=== PATIENT | male | born 1980 | race Hispanic/Latino ===

== ENCOUNTER 2019-03-17 14:56 | Outpatient (CLI) | payer OTHER ==
--- NOTE | 2019-03-17 17:05 | RAD ---
Radiograph right wrist 3 views: DATE: 03/17/2019 HISTORY: 38-year-old male status post traumatic injury COMPARISON: None FINDINGS: Mildly comminuted oblique-transverse fracture of distal radial metaphysis, with approximately 25% bon e width posterior displacement of major distal fragment and slight overlap suggesting impaction, and no major angulation. No obvious step-off of radiocarpal joint surface, although a component of th e fracture has a vertical component that does involve the ulnar side of the distal radiocarpal articular surface. Questionable nondisplaced linear lucency across the waist of the scaphoid, encroaching upon distal po le. Uncertain whether this is part of normal the trabecular markings or nondisplaced fracture. Mildly displaced fracture of mid and distal portions of ulnar styloid process. IMPRESSION: 1. Acute, traumatic, mildly displaced Colles' fracture of distal radial metaphysis and probably also epiphysis. 2. Acute, traumatic, minimally displaced fracture of ulnar styloid process. 3. Uncertain whether or not there is a nondisplaced scaphoid fracture. Follow-up is recommended.
--- NOTE | 2019-03-17 17:07 | RAD ---
Radiograph right forearm 2 views: 03/17/2019 HISTORY: 38-year-old male status post acute traumatic injury to forearm. COMPARISON: None FINDINGS: Mildly comminuted, mildly displaced fracture of distal radial metaphysis and epiphysis. Fracture of mid ulnar styloid process is more displaced on this radiograph of the forearm than it was during the wrist radiograph. The rest of the radius and rest of the ulna are intact. IMPRESSION: 1. Acute, traumatic, displaced Colles' fracture of distal radial metaphysis and epiphysis. 2. Acute, traumatic, displaced fracture of ulnar styloid process.
== END 2019-03-17 14:57 | disposition home or self-care (01) ==
LOC: BICRAD 14:56
PROVIDERS: ATTEND Family Medicine
DX: S59.911A Unspecified injury of right forearm, initial encounter (principal); S52.531A Colles' fracture of right radius, initial encounter for closed fracture; S52.611A Displaced fracture of right ulna styloid process, initial encounter for closed fracture; S52.502A Unspecified fracture of the lower end of left radius, initial encounter for closed fracture

== ENCOUNTER 2020-11-22 16:57 | Emergency (ER) | payer SELFPAY ==
[2020-11-22] MEDS ORDERED: Acetaminophen 500 MG TAB ONE (19:51)
[2020-11-22] MEDS ORDERED: Ibuprofen 800 MG TAB ONE (21:41)
[2020-11-23 15:30] LABS: SARS-CoV-2 PCR by NAA DETECTED (NotDetected)
== END 2020-11-22 23:05 | disposition home or self-care (01) ==
LOC: ERS 16:57
DX: U07.1 COVID-19 (principal)
CPT/HCPCS: 99283; U0003; U0005

== ENCOUNTER 2020-11-29 09:13 | Inpatient (IN) | payer SELFPAY ==
[2020-11-29 09:52] LABS: #Lymphocytes 1.3 thou/uL (1.20-3.40); #Monocytes 0.3 thou/uL (0.11-0.59); #Neutrophils 7.6 thou/uL (1.40-6.50); %Basophils 0.2 % (0.0-1.0); %Eosinophils 0.1 % (0.0-10.0); %Lymphocytes 14.3 % (21.0-51.0); %Monocytes 3.2 % (0.0-10.0); %Neutrophils 82.2 % (42.0-75.0); Hemoglobin 13.4 g/dL (14.0-18.0); Mean Corpuscular HGB CONC 35.7 g/dL (32.0-36.0); Mean Corpuscular Hemoglobin 30.7 pg (27.0-31.0); Mean Corpuscular Volume 85.9 fL (78.0-98.0); Platelet Count 308 thou/uL (130-400); RBC Distribution Width 12.9 % (11.5-14.5); Red Blood Cell (RBC) Count 4.36 mill/uL (4.70-6.10); White Blood Cell (WBC) Count 9.3 thou/uL (4.8-10.8)
[2020-11-29] MEDS ORDERED: cefTRIAXone\\ROCEPHIN 2 GM VIAL ONE (09:55)
[2020-11-29] MEDS ORDERED: Dexamethasone 10 MG/ML VIAL ONE (09:55)
[2020-11-29] MEDS ORDERED: Azithromycin 500 MG VIAL ONE (09:55)
[2020-11-29] MEDS ORDERED: Aspirin Chewable 81 MG TAB ONE (09:55)
[2020-11-29 09:58] LABS: ALT (SGPT) 47 U/L (8-55); AST (SGOT) 92 U/L (5-34); Albumin 3.7 g/dL (3.5-5.0); Alkaline Phosphatase 89 U/L (40-110); Anion Gap 13 mmol/L (10-20); BUN (Urea Nitrogen) 11 mg/dL (8.9-20.6); Bilirubin, Total 0.9 mg/dL (0.2-1.2); CK (CPK) 2085 U/L (30-200); Calc. Creatinine Clearance 0 mL/min (70-130); Calcium 8.3 mg/dL (7.8-10.44); Carbon Dioxide 25 mmol/L (22-29); Chloride 90 mmol/L (98-107); Globulin 4.4 g/dL (2.4-3.5); Glucose 153 mg/dL (70-105); Protein, Total 8.1 g/dL (6.0-8.3); Sodium 125 mmol/L (136-145)
[2020-11-29 10:03] LABS: Potassium 2.9 mmol/L (3.5-5.1)
[2020-11-29] MEDS ORDERED: Potassium Chloride 20 MEQ TAB ONE (10:30)
[2020-11-29] MEDS ORDERED: Enoxaparin Sodium 80 MG/0.8 ML SYRINGE ONE (10:30)
[2020-11-29] MEDS ORDERED: Iopamidol-370 76% 500 ML 1 ML ONE (10:43)
[2020-11-29 13:02] LABS: SARS-CoV-2 NAA Rapid Test DETECTED (NotDetected)
[2020-11-29] MEDS ORDERED: Rocuronium Bromide 10 MG/ML (10ML VIAL) ONE (15:43)
[2020-11-29] MEDS ORDERED: Electrolyte Replacement Protocol 1 EACH FS ONE (16:10)
[2020-11-29] MEDS ORDERED: Ondansetron PF 4 MG/2 ML Vial IVP PRN (16:10)
[2020-11-29] MEDS ORDERED: Ventilator Sedation Protocol 1 EACH FS ONE ×2 (16:10→18:06)
[2020-11-29] MEDS ORDERED: Albuterol Sulfate 2.5 mg/3 ml Neb NEB PRN (16:10)
[2020-11-29] MEDS ORDERED: hydrALAZINE 20 MG/ML VIAL SLOW IVP PRN (16:10)
[2020-11-29] MEDS ORDERED: Ondansetron ODT 4 MG TAB PO PRN (16:10)
[2020-11-29] MEDS ORDERED: Acetaminophen 500 MG TAB PO PRN (16:10)
[2020-11-29] MEDS ORDERED: PROPOFOL 0 ML ONE (16:19)
[2020-11-29] MEDS ORDERED: Propofol 1,000 MG/100 ML VIAL IV ONE ×2 (16:20→21:34)
[2020-11-29 16:30] LABS: Actual Bicarbonate (HCO3a) 20.4 mEq/L (22-28); Analyzer IN Cardio ER; Base Excess (BEa) -5.7 mEq/L (-2.0 to +3.0); CO2 Tension 42.2 mmHg (35.0-45.0); Calcium, Ionized (arterial) 1.08 mmol/L (1.12-1.30); Carboxyhemoglobin (COHb) 0.3 gm% (0.0-3.0); Hemoglobin (Hb) 13.9 g/dL (14.0-18.0); O2 Tension (PaO2), arterial 62.3 mmHg (80.0-100.0); Potassium - ABG Lab 3.96 mmol/L (3.70-5.30)
[2020-11-29 16:41] LABS: Puncture Site LRA
[2020-11-29] MEDS ORDERED: DISCONTINUE PREVIOUS NARCOTIC PAIN MEDICATIONS AND BENZODIAZEPINES FS SCH (17:00)
[2020-11-29] MEDS ORDERED: Fentanyl BOLUS 250 ML IVPB PRN (17:00)
[2020-11-29] MEDS ORDERED: Electrolyte Replacement Protocol FS PRN (17:00)
[2020-11-29] MEDS ORDERED: Propofol BOLUS 1,000 MG/100 ML VIAL IV PRN (17:00)
[2020-11-29] MEDS ORDERED: Morphine 2 MG/ML VIAL SLOW IVP PRN (17:00)
[2020-11-29] MEDS: Sodium Chloride 0.9% 1,000 ML IV SCH ×2 (17:02→22:15)
[2020-11-29] MEDS: Propofol 1,000 MG/100 ML VIAL IV PRN ×2 (17:08→22:24)
[2020-11-29] MEDS ORDERED: Fentanyl 100 MCG/2 ML VIAL ONE (17:46)
[2020-11-29] MEDS: VANCOMYCIN 1.25 GM/250 ML BAG 1.25 GM in Premix Bag 1 BAG IVPB SCH (18:24)
[2020-11-29] MEDS ORDERED: Pantoprazole 40 MG VIAL IVP SCH (18:45)
[2020-11-29] MEDS: methylPREDNISolone Sod Succ/PF 80 MG in Sodium Chloride 0.9% 250 ML 250 ML IVPB SCH (20:18)
[2020-11-29] MEDS ORDERED: Dexamethasone 10 MG/ML VIAL SLOW IVP SCH (21:00)
[2020-11-29] MEDS ORDERED: Enoxaparin Sodium 40 MG/0.4 ML SYRINGE ONE (22:32)
[2020-11-29] MEDS ORDERED: Cefepime 2 GM VIAL ONE (22:32)
[2020-11-29] MEDS ORDERED: Pantoprazole 40 MG VIAL ONE (22:32)
[2020-11-29] MEDS ORDERED: Cholecalciferol 1,000 UNITS (25 MCG) TAB ONE (22:42)
[2020-11-29] MEDS: Enoxaparin Sodium 40 MG/0.4 ML SYRINGE SC SCH (22:42)
[2020-11-29] MEDS: Cefepime 2 GM in Sodium Chloride 0.9% 100 ML IVPB SCH (22:43)
[2020-11-29] MEDS: Cholecalciferol 1,000 UNITS (25 MCG) TAB PER TUBE SCH (22:44)
[2020-11-30] MEDS ORDERED: Vecuronium 10 MG VIAL ONE ×8 (00:58→16:34)
[2020-11-30] MEDS: Vecuronium 10 MG VIAL IV PRN ×9 (01:30→22:10)
[2020-11-30] MEDS ORDERED: Propofol 1,000 MG/100 ML VIAL IV ONE ×4 (03:12→14:47)
[2020-11-30] MEDS: Propofol 1,000 MG/100 ML VIAL IV PRN ×5 (03:17→18:20)
[2020-11-30 05:00] LABS: ALT (SGPT) 40 U/L (8-55); AST (SGOT) 62 U/L (5-34); Albumin 2.8 g/dL (3.5-5.0); Alkaline Phosphatase 72 U/L (40-110); Anion Gap 13 mmol/L (10-20); BUN (Urea Nitrogen) 9 mg/dL (8.9-20.6); Bilirubin, Total 0.5 mg/dL (0.2-1.2); CK (CPK) 770 U/L (30-200); Calc. Creatinine Clearance 0 mL/min (70-130); Calcium 7.9 mg/dL (7.8-10.44); Carbon Dioxide 23 mmol/L (22-29); Chloride 107 mmol/L (98-107); Globulin 3.9 g/dL (2.4-3.5); Glucose 175 mg/dL (70-105); Protein, Total 6.7 g/dL (6.0-8.3); Sodium 139 mmol/L (136-145)
[2020-11-30 05:01] LABS: #Lymphocytes 1.1 thou/uL (1.20-3.40); #Monocytes 0.4 thou/uL (0.11-0.59); #Neutrophils 11.8 thou/uL (1.40-6.50); %Basophils 0.1 % (0.0-1.0); %Eosinophils 0.1 % (0.0-10.0); %Lymphocytes 8.1 % (21.0-51.0); %Monocytes 2.6 % (0.0-10.0); %Neutrophils 89.2 % (42.0-75.0); Hemoglobin 12.8 g/dL (14.0-18.0); Mean Corpuscular HGB CONC 32.8 g/dL (32.0-36.0); Mean Corpuscular Hemoglobin 29.1 pg (27.0-31.0); Mean Corpuscular Volume 88.9 fL (78.0-98.0); Platelet Count 327 thou/uL (130-400); RBC Distribution Width 13.3 % (11.5-14.5); Red Blood Cell (RBC) Count 4.38 mill/uL (4.70-6.10); White Blood Cell (WBC) Count 13.2 thou/uL (4.8-10.8)
[2020-11-30 08:02] LABS: Base Excess (BEa) -4.5 mEq/L (-2.0 to +3.0); CO2 Tension 40.2 mmHg (35.0-45.0); Calcium, Ionized (arterial) 1.11 mmol/L (1.12-1.30); Carboxyhemoglobin (COHb) 0.2 gm% (0.0-3.0); Hemoglobin (Hb) 12.8 g/dL (14.0-18.0); O2 Tension (PaO2), arterial 78.3 mmHg (80.0-100.0); Potassium - ABG Lab 3.69 mmol/L (3.70-5.30); pH, Arterial 7.34 (7.35-7.45)
[2020-11-30] MEDS: VANCOMYCIN 1.25 GM/250 ML BAG 1.25 GM in Premix Bag 1 BAG IVPB SCH ×2 (08:13→16:43)
[2020-11-30 08:19] LABS: Peep/CPAP 12.5 cmH2O; Puncture Site LRA
[2020-11-30] MEDS ORDERED: Cefepime 2 GM VIAL ONE (08:41)
[2020-11-30] MEDS ORDERED: Enoxaparin Sodium 40 MG/0.4 ML SYRINGE ONE (08:41)
[2020-11-30] MEDS ORDERED: Zinc Sulfate 220 MG CAP ONE (08:43)
[2020-11-30] MEDS ORDERED: Ascorbic Acid 500 mg Chewable Tablet ONE (08:43)
[2020-11-30] MEDS: Ascorbic Acid 500 mg Chewable Tablet PER TUBE SCH (09:01)
[2020-11-30] MEDS: Cefepime 2 GM in Sodium Chloride 0.9% 100 ML IVPB SCH ×2 (09:01→22:13)
[2020-11-30] MEDS: Enoxaparin Sodium 40 MG/0.4 ML SYRINGE SC SCH (09:02)
[2020-11-30] MEDS: Zinc Sulfate 220 MG CAP PER TUBE SCH (09:02)
[2020-11-30] MEDS: Sodium Chloride 0.9% 1,000 ML IV SCH ×2 (09:05→11:54)
[2020-11-30] MEDS ORDERED: Acetaminophen 325 MG TAB ONE (10:29)
[2020-11-30] MEDS: methylPREDNISolone Sod Succ/PF 80 MG in Sodium Chloride 0.9% 250 ML 250 ML IVPB SCH (18:21)
[2020-11-30] MEDS ORDERED: Sterile Water 10 ML ONE (21:38)
[2020-11-30] MEDS ORDERED: Sodium Bicarb 50 MEQ/50 ML Abboject 8.4% SYRINGE ONE (21:38)
[2020-11-30] MEDS: Lorazepam 2 MG/ML VIAL SLOW IVP PRN ×2 (21:40→22:10)
[2020-11-30] MEDS: Fentanyl CADD 100 ML IV SCH (21:52)
[2020-11-30] MEDS: Pantoprazole 40 MG VIAL IVP SCH (22:00)
[2020-11-30] MEDS: Enoxaparin Sodium 60 MG/0.6 ML SYRINGE SC SCH (22:00)
[2020-11-30] MEDS: Cholecalciferol 1,000 UNITS (25 MCG) TAB PER TUBE SCH (22:18)
[2020-12-01] MEDS: Lorazepam 2 MG/ML VIAL SLOW IVP PRN ×9 (01:06→22:10)
[2020-12-01] MEDS: Propofol 500 MG/50 ML VIAL IV PRN ×5 (01:07→11:09)
[2020-12-01] MEDS: Sodium Chloride 0.9% 1,000 ML IV SCH ×2 (02:30→07:42)
[2020-12-01 04:10] LABS: ALT (SGPT) 35 U/L (8-55); AST (SGOT) 50 U/L (5-34); Albumin 2.5 g/dL (3.5-5.0); Alkaline Phosphatase 86 U/L (40-110); Anion Gap 11 mmol/L (10-20); BUN (Urea Nitrogen) 10 mg/dL (8.9-20.6); Bilirubin, Total 0.6 mg/dL (0.2-1.2); Calc. Creatinine Clearance 164 mL/min (70-130); Calcium 7.5 mg/dL (7.8-10.44); Carbon Dioxide 25 mmol/L (22-29); Chloride 110 mmol/L (98-107); Glucose 165 mg/dL (70-105); Potassium 4.1 mmol/L (3.5-5.1); Protein, Total 5.5 g/dL (6.0-8.3); Sodium 142 mmol/L (136-145)
[2020-12-01 04:30] LABS: #Lymphocytes 0.6 thou/uL (1.20-3.40); #Monocytes 0.2 thou/uL (0.11-0.59); #Neutrophils 7.8 thou/uL (1.40-6.50); %Basophils 0.2 % (0.0-1.0); %Eosinophils 0.2 % (0.0-10.0); %Lymphocytes 6.6 % (21.0-51.0); %Monocytes 2.4 % (0.0-10.0); %Neutrophils 90.7 % (42.0-75.0); Hemoglobin 11.6 g/dL (14.0-18.0); Mean Corpuscular HGB CONC 34.8 g/dL (32.0-36.0); Mean Corpuscular Hemoglobin 30.9 pg (27.0-31.0); Mean Corpuscular Volume 88.8 fL (78.0-98.0); Mean Platelet Volume 7.8 fL (7.4-10.4); Platelet Count 356 thou/uL (130-400); RBC Distribution Width 13.5 % (11.5-14.5); Red Blood Cell (RBC) Count 3.76 mill/uL (4.70-6.10); White Blood Cell (WBC) Count 8.6 thou/uL (4.8-10.8)
[2020-12-01] MEDS: VANCOMYCIN 1.25 GM/250 ML BAG 1.25 GM in Premix Bag 1 BAG IVPB SCH ×2 (04:58→16:38)
[2020-12-01] MEDS: Fentanyl CADD 100 ML IV SCH ×2 (05:18→14:57)
[2020-12-01] MEDS: Vecuronium 10 MG VIAL IV PRN ×9 (05:30→22:27)
[2020-12-01] MEDS: methylPREDNISolone Sod Succ/PF 80 MG in Sodium Chloride 0.9% 250 ML 250 ML IVPB SCH (07:42)
[2020-12-01] MEDS ORDERED: PROPOFOL 20 ML ONE (07:43)
[2020-12-01] MEDS: Cefepime 2 GM in Sodium Chloride 0.9% 100 ML IVPB SCH ×2 (08:53→20:29)
[2020-12-01] MEDS: Enoxaparin Sodium 60 MG/0.6 ML SYRINGE SC SCH ×2 (08:53→20:28)
[2020-12-01] MEDS: Ascorbic Acid 500 mg Chewable Tablet PER TUBE SCH (08:53)
[2020-12-01] MEDS: Zinc Sulfate 220 MG CAP PER TUBE SCH (08:53)
[2020-12-01 09:55] LABS: Actual Bicarbonate (HCO3a) 26.4 mEq/L (22-28); Base Excess (BEa) 1.5 mEq/L (-2.0 to +3.0); CO2 Tension 42.6 mmHg (35.0-45.0); Calcium, Ionized (arterial) 1.06 mmol/L (1.12-1.30); Carboxyhemoglobin (COHb) 0.1 gm% (0.0-3.0); Hemoglobin (Hb) 11.6 g/dL (14.0-18.0); Potassium - ABG Lab 3.74 mmol/L (3.70-5.30); pH, Arterial 7.41 (7.35-7.45)
[2020-12-01 09:58] LABS: O2 Tension (PaO2), arterial 44.8 mmHg (80.0-100.0); Puncture Site RRA
[2020-12-01 10:10] LABS: ALT (SGPT) 33 U/L (8-55); AST (SGOT) 48 U/L (5-34); Albumin 2.5 g/dL (3.5-5.0); Alkaline Phosphatase 91 U/L (40-110); Anion Gap 12 mmol/L (10-20); BUN (Urea Nitrogen) 11 mg/dL (8.9-20.6); Bilirubin, Total 0.5 mg/dL (0.2-1.2); Calc. Creatinine Clearance 0 mL/min (70-130); Calcium 7.4 mg/dL (7.8-10.44); Carbon Dioxide 24 mmol/L (22-29); Chloride 110 mmol/L (98-107); Globulin 2.9 g/dL (2.4-3.5); Glucose 165 mg/dL (70-105); Magnesium 2.2 mg/dL (1.6-2.6); Phosphorus 2.7 mg/dL (2.3-4.7); Protein, Total 5.4 g/dL (6.0-8.3); Sodium 142 mmol/L (136-145)
[2020-12-01 10:11] LABS: Band 34 % (5-11); Lymphocytes 4 % (21-51); MDiff Complete? YES; Mean Corpuscular HGB CONC 36.2 g/dL (32.0-36.0); Mean Corpuscular Hemoglobin 32.1 pg (27.0-31.0); Mean Corpuscular Volume 88.9 fL (78.0-98.0); Mean Platelet Volume 7.5 fL (7.4-10.4); Myelocyte 1 % (0-0); Neutrophil 58 % (42-75); Nucleated RBC 1 % (0); Platelet Count 364 thou/uL (130-400); RBC Distribution Width 13.5 % (11.5-14.5); Reactive Lymphocytes 1 % (0-10); Red Blood Cell (RBC) Count 3.73 mill/uL (4.70-6.10); White Blood Cell (WBC) Count 8.4 thou/uL (4.8-10.8)
[2020-12-01] MEDS: Propofol 1,000 MG/100 ML VIAL IV PRN ×2 (16:01→22:11)
[2020-12-01 18:15] LABS: Bacteria/HPF None Seen HPF (None Seen); Bilirubin Negative (Negative); Blood, Urine 2+ (Negative); Clarity Clear (Clear); Glucose, Urine (Dipstick) Normal (Negative); Ketone, Urine Negative (Negative); Leukocyte Negative Leu/uL (Negative); Nitrite Negative (Negative); Protein, Urine (Dipstick) 50 mg/dL (Neg-Trace); RBC/HPF 0-3 HPF (0-3); Specific Gravity, Urine 1.026 (1.002-1.036); Squamous Epithelial 0-3 HPF (0-3); Urobilinogen Normal mg/dL (Less than 2)
[2020-12-01 18:16] LABS: Urine Culture Reflex Yes Yes
[2020-12-01] MEDS ORDERED: Sterile Water 10 ML ONE ×2 (20:06→22:26)
[2020-12-01] MEDS: Cholecalciferol 1,000 UNITS (25 MCG) TAB PER TUBE SCH (20:28)
[2020-12-01] MEDS: Pantoprazole 40 MG VIAL IVP SCH (20:29)
[2020-12-02] MEDS ORDERED: Fentanyl CADD 100 ML ONE (01:03)
[2020-12-02] MEDS: Lorazepam 2 MG/ML VIAL SLOW IVP PRN ×2 (01:12→15:02)
[2020-12-02] MEDS: Vecuronium 10 MG VIAL IV PRN ×12 (01:13→22:38)
[2020-12-02] MEDS: Fentanyl CADD 100 ML IV SCH ×3 (01:13→17:50)
[2020-12-02] MEDS: VANCOMYCIN 1.25 GM/250 ML BAG 1.25 GM in Premix Bag 1 BAG IVPB SCH ×2 (05:08→16:28)
[2020-12-02] MEDS: Propofol 1,000 MG/100 ML VIAL IV PRN ×5 (05:08→23:37)
[2020-12-02] MEDS ORDERED: Sterile Water 10 ML ONE (06:32)
[2020-12-02 07:20] LABS: ALT (SGPT) 37 U/L (8-55); AST (SGOT) 66 U/L (5-34); Albumin 2.5 g/dL (3.5-5.0); Alkaline Phosphatase 109 U/L (40-110); Anion Gap 11 mmol/L (10-20); BUN (Urea Nitrogen) 14 mg/dL (8.9-20.6); Bilirubin, Total 0.6 mg/dL (0.2-1.2); CRP (Inflammatory) 5.86 mg/dL (= or < 0.5); Calc. Creatinine Clearance 0 mL/min (70-130); Calcium 7.5 mg/dL (7.8-10.44); Carbon Dioxide 25 mmol/L (22-29); Chloride 108 mmol/L (98-107); Glucose 178 mg/dL (70-105); Magnesium 2.3 mg/dL (1.6-2.6); Potassium 4.2 mmol/L (3.5-5.1); Protein, Total 5.5 g/dL (6.0-8.3); Sodium 140 mmol/L (136-145)
[2020-12-02] MEDS: Ascorbic Acid 500 mg Chewable Tablet PER TUBE SCH (07:37)
[2020-12-02] MEDS: Enoxaparin Sodium 60 MG/0.6 ML SYRINGE SC SCH ×2 (07:37→20:18)
[2020-12-02] MEDS: Zinc Sulfate 220 MG CAP PER TUBE SCH (07:37)
[2020-12-02 07:41] LABS: Phosphorus 3.2 mg/dL (2.3-4.7)
[2020-12-02 07:46] LABS: Band 13 % (5-11); Hemoglobin 13.1 g/dL (14.0-18.0); Lymphocytes 14 % (21-51); MDiff Complete? YES; Mean Corpuscular HGB CONC 37.6 g/dL (32.0-36.0); Mean Corpuscular Hemoglobin 33.3 pg (27.0-31.0); Mean Corpuscular Volume 88.4 fL (78.0-98.0); Mean Platelet Volume 7.4 fL (7.4-10.4); Neutrophil 73 % (42-75); Nucleated RBC 2 % (0); Platelet Count 423 thou/uL (130-400); Platelet Morphology Comment Appears Increased; Polychromasia SLIGHT = 2-3 cells (100X) (0-2/hpf); RBC Distribution Width 13.5 % (11.5-14.5); Red Blood Cell (RBC) Count 3.95 mill/uL (4.70-6.10); White Blood Cell (WBC) Count 8.5 thou/uL (4.8-10.8)
[2020-12-02 08:03] LABS: Actual Bicarbonate (HCO3a) 26.1 mEq/L (22-28); CO2 Tension 48.5 mmHg (35.0-45.0); Calcium, Ionized (arterial) 1.09 mmol/L (1.12-1.30); Carboxyhemoglobin (COHb) 0.5 gm% (0.0-3.0); Hemoglobin (Hb) 13.3 g/dL (14.0-18.0); Potassium - ABG Lab 3.52 mmol/L (3.70-5.30); pH, Arterial 7.35 (7.35-7.45)
[2020-12-02 08:54] LABS: O2 Tension (PaO2), arterial 51.2 mmHg (80.0-100.0)
[2020-12-02 08:55] LABS: ALV-art Gradient 351.625 mmHg (0-20); Puncture Site RRA
[2020-12-02] MEDS: Cefepime 2 GM in Sodium Chloride 0.9% 100 ML IVPB SCH ×2 (09:45→21:08)
[2020-12-02] MEDS: methylPREDNISolone Sod Succ/PF 80 MG in Sodium Chloride 0.9% 250 ML 250 ML IVPB SCH (15:31)
[2020-12-02] MEDS: Cholecalciferol 1,000 UNITS (25 MCG) TAB PER TUBE SCH (20:18)
[2020-12-02] MEDS: Pantoprazole 40 MG VIAL IVP SCH (20:18)
[2020-12-03] MEDS: Vecuronium 10 MG VIAL IV PRN ×12 (00:33→23:23)
[2020-12-03] MEDS: Lorazepam 2 MG/ML VIAL SLOW IVP PRN ×5 (02:02→21:59)
[2020-12-03] MEDS ORDERED: Fentanyl CADD 100 ML ONE ×3 (04:07→23:19)
[2020-12-03] MEDS: Propofol 1,000 MG/100 ML VIAL IV PRN ×5 (04:09→21:59)
[2020-12-03] MEDS: Fentanyl CADD 100 ML IV SCH ×3 (04:10→23:23)
[2020-12-03 04:22] LABS: #Monocytes 0.3 thou/uL (0.11-0.59); %Basophils 0.1 % (0.0-1.0); %Eosinophils 0.4 % (0.0-10.0); %Lymphocytes 10.6 % (21.0-51.0); %Monocytes 3.3 % (0.0-10.0); %Neutrophils 85.6 % (42.0-75.0); Hemoglobin 12.6 g/dL (14.0-18.0); Mean Corpuscular HGB CONC 35.5 g/dL (32.0-36.0); Mean Corpuscular Hemoglobin 31.9 pg (27.0-31.0); Mean Corpuscular Volume 89.9 fL (78.0-98.0); Mean Platelet Volume 7.6 fL (7.4-10.4); Platelet Count 446 thou/uL (130-400); RBC Distribution Width 13.5 % (11.5-14.5); Red Blood Cell (RBC) Count 3.94 mill/uL (4.70-6.10); White Blood Cell (WBC) Count 9.4 thou/uL (4.8-10.8)
[2020-12-03 04:39] LABS: Phosphorus 3.8 mg/dL (2.3-4.7)
[2020-12-03 04:40] LABS: ALT (SGPT) 48 U/L (8-55); AST (SGOT) 63 U/L (5-34); Albumin 2.5 g/dL (3.5-5.0); Alkaline Phosphatase 110 U/L (40-110); Anion Gap 11 mmol/L (10-20); BUN (Urea Nitrogen) 16 mg/dL (8.9-20.6); Bilirubin, Total 0.7 mg/dL (0.2-1.2); Calc. Creatinine Clearance 159 mL/min (70-130); Calcium 7.8 mg/dL (7.8-10.44); Carbon Dioxide 30 mmol/L (22-29); Chloride 105 mmol/L (98-107); Glucose 231 mg/dL (70-105); Magnesium 2.3 mg/dL (1.6-2.6); Potassium 4.4 mmol/L (3.5-5.1); Protein, Total 5.5 g/dL (6.0-8.3); Sodium 142 mmol/L (136-145)
[2020-12-03] MEDS ORDERED: Vancomycin HCl 1.25 GM in Sodium Chloride 0.9% 250 ML 250 ML IVPB SCH ×2 (05:00→17:00)
[2020-12-03] MEDS: Zinc Sulfate 220 MG CAP PER TUBE SCH (08:01)
[2020-12-03] MEDS: Ascorbic Acid 500 mg Chewable Tablet PER TUBE SCH (08:01)
[2020-12-03] MEDS: Enoxaparin Sodium 60 MG/0.6 ML SYRINGE SC SCH ×2 (08:01→20:07)
[2020-12-03 08:02] LABS: Actual Bicarbonate (HCO3a) 33.8 mEq/L (22-28); Base Excess (BEa) 6.7 mEq/L (-2.0 to +3.0); Calcium, Ionized (arterial) 1.08 mmol/L (1.12-1.30); Carboxyhemoglobin (COHb) 0.6 gm% (0.0-3.0); Potassium - ABG Lab 3.86 mmol/L (3.70-5.30); pH, Arterial 7.37 (7.35-7.45)
[2020-12-03] MEDS: Cefepime 2 GM in Sodium Chloride 0.9% 100 ML IVPB SCH ×2 (08:44→21:27)
[2020-12-03 08:56] LABS: O2 Tension (PaO2), arterial 58.3 mmHg (80.0-100.0); Puncture Site RRA
[2020-12-03] MEDS: methylPREDNISolone Sod Succ/PF 80 MG in Sodium Chloride 0.9% 250 ML 250 ML IVPB SCH (16:18)
[2020-12-03 16:42] LABS: Vancomycin, Trough 9.7 ug/mL
[2020-12-03] MEDS: Diazepam 10 MG/2 ML SYRINGE IVP PRN (16:59)
[2020-12-03] MEDS ORDERED: VANCOMYCIN 1.25 GM/250 ML BAG 1.25 GM in Premix Bag 1 BAG IVPB SCH (17:00)
[2020-12-03] MEDS: Pantoprazole 40 MG VIAL IVP SCH (20:07)
[2020-12-03] MEDS: Cholecalciferol 1,000 UNITS (25 MCG) TAB PER TUBE SCH (20:07)
[2020-12-04] MEDS: Vancomycin HCl 1.25 GM in Sodium Chloride 0.9% 250 ML 250 ML IVPB SCH ×2 (00:31→08:33)
[2020-12-04] MEDS: Vecuronium 10 MG VIAL IV PRN ×13 (01:11→22:30)
[2020-12-04] MEDS: Lorazepam 2 MG/ML VIAL SLOW IVP PRN ×7 (01:11→13:12)
[2020-12-04] MEDS: Propofol 1,000 MG/100 ML VIAL IV PRN ×5 (02:38→20:13)
[2020-12-04] MEDS: Cefepime 2 GM in Sodium Chloride 0.9% 100 ML IVPB SCH ×2 (08:32→20:15)
[2020-12-04] MEDS: Zinc Sulfate 220 MG CAP PER TUBE SCH (08:33)
[2020-12-04] MEDS: Ascorbic Acid 500 mg Chewable Tablet PER TUBE SCH (08:33)
[2020-12-04] MEDS: Enoxaparin Sodium 60 MG/0.6 ML SYRINGE SC SCH ×2 (08:33→20:13)
[2020-12-04] MEDS ORDERED: Fentanyl CADD 100 ML ONE ×2 (08:58→18:21)
[2020-12-04] MEDS: Fentanyl CADD 100 ML IV SCH ×2 (09:03→18:24)
[2020-12-04] MEDS: Diazepam 10 MG/2 ML SYRINGE IVP PRN (09:51)
[2020-12-04 17:01] LABS: Vancomycin, Trough 16.3 ug/mL
[2020-12-04] MEDS: methylPREDNISolone Sod Succ/PF 80 MG in Sodium Chloride 0.9% 250 ML 250 ML IVPB SCH (17:06)
[2020-12-04] MEDS: VANCOMYCIN 1.25 GM/250 ML BAG 1.25 GM in Premix Bag 1 BAG IVPB SCH (17:08)
[2020-12-04] MEDS: Senokot S 8.6-50 MG TAB PO SCH (20:13)
[2020-12-04] MEDS: Cholecalciferol 1,000 UNITS (25 MCG) TAB PER TUBE SCH (20:13)
[2020-12-04] MEDS: Pantoprazole 40 MG VIAL IVP SCH (20:13)
[2020-12-05] MEDS: VANCOMYCIN 1.25 GM/250 ML BAG 1.25 GM in Premix Bag 1 BAG IVPB SCH ×3 (00:06→17:30)
[2020-12-05] MEDS: Vecuronium 10 MG VIAL IV PRN ×17 (00:06→23:19)
[2020-12-05] MEDS: Propofol 1,000 MG/100 ML VIAL IV PRN ×5 (01:16→19:55)
[2020-12-05] MEDS ORDERED: Fentanyl CADD 100 ML ONE ×2 (04:28→14:36)
[2020-12-05] MEDS: Fentanyl CADD 100 ML IV SCH ×2 (04:32→14:40)
[2020-12-05] MEDS: Ascorbic Acid 500 mg Chewable Tablet PER TUBE SCH (07:39)
[2020-12-05] MEDS: Zinc Sulfate 220 MG CAP PER TUBE SCH (07:40)
[2020-12-05] MEDS: Polyethylene Glycol 3350 17 GM Packet PER TUBE SCH (07:40)
[2020-12-05] MEDS: Senokot S 8.6-50 MG TAB PO SCH ×2 (07:40→19:54)
[2020-12-05 07:44] LABS: Base Excess (BEa) 9.5 mEq/L (-2.0 to +3.0); Carboxyhemoglobin (COHb) 0.6 gm% (0.0-3.0); Hemoglobin (Hb) 13.3 g/dL (14.0-18.0); pH, Arterial 7.34 (7.35-7.45)
[2020-12-05 07:48] LABS: CO2 Tension 71.9 mmHg (35.0-45.0)
[2020-12-05 07:49] LABS: ALV-art Gradient 349.525 mmHg (0-20); O2 Tension (PaO2), arterial 59.7 mmHg (80.0-100.0); Puncture Site RRA
[2020-12-05] MEDS: Lorazepam 2 MG/ML VIAL SLOW IVP PRN ×2 (08:25→19:53)
[2020-12-05] MEDS: Cefepime 2 GM in Sodium Chloride 0.9% 100 ML IVPB SCH ×2 (08:29→19:54)
[2020-12-05] MEDS: Enoxaparin Sodium 60 MG/0.6 ML SYRINGE SC SCH ×2 (08:29→19:54)
[2020-12-05 08:39] LABS: Anion Gap 10 mmol/L (10-20); BUN (Urea Nitrogen) 21 mg/dL (8.9-20.6); Calc. Creatinine Clearance 191 mL/min (70-130); Calcium 7.6 mg/dL (7.8-10.44); Carbon Dioxide 34 mmol/L (22-29); Chloride 101 mmol/L (98-107); Glucose 221 mg/dL (70-105); Potassium 4.2 mmol/L (3.5-5.1); Sodium 141 mmol/L (136-145)
[2020-12-05 10:03] LABS: Band 24 % (5-11); Eosinophils 1 % (0-10); Hemoglobin 12.9 g/dL (14.0-18.0); Lymphocytes 14 % (21-51); MDiff Complete? YES; Mean Corpuscular HGB CONC 36.4 g/dL (32.0-36.0); Mean Corpuscular Hemoglobin 32.3 pg (27.0-31.0); Mean Corpuscular Volume 88.6 fL (78.0-98.0); Mean Platelet Volume 7.2 fL (7.4-10.4); Metamyelocyte 2 % (0-0); Monocytes 1 % (0-10); Myelocyte 2 % (0-0); Neutrophil 56 % (42-75); Platelet Count 376 thou/uL (130-400); Platelet Morphology Comment Appears Adequate; Polychromasia SLIGHT = 2-3 cells (100X) (0-2/hpf); RBC Distribution Width 13.5 % (11.5-14.5); Red Blood Cell (RBC) Count 4.01 mill/uL (4.70-6.10); White Blood Cell (WBC) Count 13.3 thou/uL (4.8-10.8)
[2020-12-05 16:51] LABS: Vancomycin, Trough 17.7 ug/mL
[2020-12-05] MEDS: methylPREDNISolone Sod Succ/PF 80 MG in Sodium Chloride 0.9% 250 ML 250 ML IVPB SCH (18:00)
[2020-12-05] MEDS: Cholecalciferol 1,000 UNITS (25 MCG) TAB PER TUBE SCH (19:54)
[2020-12-05] MEDS: Pantoprazole 40 MG VIAL IVP SCH (19:55)
[2020-12-06] MEDS ORDERED: Fentanyl CADD 100 ML ONE ×3 (00:13→19:49)
[2020-12-06] MEDS: Fentanyl CADD 100 ML IV SCH ×3 (00:20→19:55)
[2020-12-06] MEDS: Vecuronium 10 MG VIAL IV PRN ×11 (00:51→20:02)
[2020-12-06] MEDS: Propofol 1,000 MG/100 ML VIAL IV PRN ×5 (00:54→20:03)
[2020-12-06] MEDS: Lorazepam 2 MG/ML VIAL SLOW IVP PRN ×4 (00:54→20:02)
[2020-12-06] MEDS: VANCOMYCIN 1.25 GM/250 ML BAG 1.25 GM in Premix Bag 1 BAG IVPB SCH ×3 (02:37→16:40)
[2020-12-06 05:06] LABS: Hemoglobin 12.6 g/dL (14.0-18.0); Mean Corpuscular HGB CONC 36.1 g/dL (32.0-36.0); Mean Corpuscular Hemoglobin 32.3 pg (27.0-31.0); Mean Corpuscular Volume 89.4 fL (78.0-98.0); Mean Platelet Volume 7.5 fL (7.4-10.4); Platelet Count 406 thou/uL (130-400); RBC Distribution Width 13.3 % (11.5-14.5); White Blood Cell (WBC) Count 12.3 thou/uL (4.8-10.8)
[2020-12-06 05:16] LABS: BUN (Urea Nitrogen) 20 mg/dL (8.9-20.6); CRP (Inflammatory) Less than 0.50 mg/dL (= or < 0.5); Calc. Creatinine Clearance 185 mL/min (70-130); Calcium 7.9 mg/dL (7.8-10.44); Glucose 212 mg/dL (70-105)
[2020-12-06 05:25] LABS: Anion Gap 13 mmol/L (10-20); Carbon Dioxide 35 mmol/L (22-29); Chloride 96 mmol/L (98-107); Potassium 4.3 mmol/L (3.5-5.1); Sodium 140 mmol/L (136-145)
[2020-12-06 05:32] LABS: Band 26 % (5-11); Eosinophils 1 % (0-10); Lymphocytes 10 % (21-51); MDiff Complete? YES; Monocytes 5 % (0-10); Neutrophil 58 % (42-75); Platelet Morphology Comment Appears Increased; RBC Morphology Normal
[2020-12-06] MEDS: Cefepime 2 GM in Sodium Chloride 0.9% 100 ML IVPB SCH ×2 (08:26→20:02)
[2020-12-06] MEDS: Ascorbic Acid 500 mg Chewable Tablet PER TUBE SCH (08:26)
[2020-12-06] MEDS: Enoxaparin Sodium 60 MG/0.6 ML SYRINGE SC SCH ×2 (08:26→20:03)
[2020-12-06] MEDS: Polyethylene Glycol 3350 17 GM Packet PER TUBE SCH (08:26)
[2020-12-06] MEDS: Senokot S 8.6-50 MG TAB PO SCH ×2 (08:27→20:02)
[2020-12-06] MEDS ORDERED: Dextrose 5% in Water 1,000 ML IV PRN (09:29)
[2020-12-06] MEDS ORDERED: Dextrose 50% Abboject 50 ML SYRINGE SLOW IVP PRN (09:29)
[2020-12-06] MEDS: Insulin Regular 300 UNITS/3 ML VIAL SC PRN ×3 (10:15→23:07)
[2020-12-06] MEDS: methylPREDNISolone Sod Succ/PF 80 MG in Sodium Chloride 0.9% 250 ML 250 ML IVPB SCH (17:49)
[2020-12-06] MEDS: Pantoprazole 40 MG VIAL IVP SCH (20:03)
[2020-12-06] MEDS: Cholecalciferol 1,000 UNITS (25 MCG) TAB PER TUBE SCH (20:13)
[2020-12-06] MEDS ORDERED: Lantus 1000 UNITS/10 ML VIAL SC SCH (21:00)
[2020-12-07 00:37] LABS: Vancomycin, Trough 15.8 ug/mL
[2020-12-07] MEDS: VANCOMYCIN 1.25 GM/250 ML BAG 1.25 GM in Premix Bag 1 BAG IVPB SCH ×3 (00:53→17:50)
[2020-12-07] MEDS: Propofol 1,000 MG/100 ML VIAL IV PRN ×5 (01:15→19:59)
[2020-12-07 05:21] LABS: ALT (SGPT) 58 U/L (8-55); AST (SGOT) 37 U/L (5-34); Albumin 2.8 g/dL (3.5-5.0); Alkaline Phosphatase 93 U/L (40-110); Anion Gap 11 mmol/L (10-20); BUN (Urea Nitrogen) 19 mg/dL (8.9-20.6); Bilirubin, Total 0.5 mg/dL (0.2-1.2); Calc. Creatinine Clearance 178 mL/min (70-130); Carbon Dioxide 33 mmol/L (22-29); Chloride 95 mmol/L (98-107); Glucose 244 mg/dL (70-105); Potassium 4.2 mmol/L (3.5-5.1); Protein, Total 5.8 g/dL (6.0-8.3); Sodium 135 mmol/L (136-145)
[2020-12-07] MEDS: Insulin Regular 300 UNITS/3 ML VIAL SC PRN ×4 (05:30→23:49)
[2020-12-07] MEDS: Vecuronium 10 MG VIAL IV PRN (06:23)
[2020-12-07 06:27] LABS: Hemoglobin 12.8 g/dL (14.0-18.0); Mean Corpuscular HGB CONC 35.4 g/dL (32.0-36.0); Mean Corpuscular Hemoglobin 31.3 pg (27.0-31.0); Mean Corpuscular Volume 88.5 fL (78.0-98.0); Mean Platelet Volume 7.3 fL (7.4-10.4); Platelet Count 375 thou/uL (130-400); RBC Distribution Width 13.9 % (11.5-14.5); White Blood Cell (WBC) Count 12.5 thou/uL (4.8-10.8)
[2020-12-07 06:28] LABS: Band 30 % (5-11); Eosinophils 2 % (0-10); Lymphocytes 10 % (21-51); MDiff Complete? YES; Metamyelocyte 2 % (0-0); Monocytes 5 % (0-10); Myelocyte 13 % (0-0); Neutrophil 37 % (42-75); Platelet Morphology Comment Appears Adequate; RBC Morphology Normal; Reactive Lymphocytes 1 % (0-10)
[2020-12-07 07:28] LABS: Actual Bicarbonate (HCO3a) 35.6 mEq/L (22-28); Base Excess (BEa) 10.8 mEq/L (-2.0 to +3.0); CO2 Tension 47.1 mmHg (35.0-45.0); Calcium, Ionized (arterial) 1.06 mmol/L (1.12-1.30); Carboxyhemoglobin (COHb) 0.4 gm% (0.0-3.0); O2 Tension (PaO2), arterial 68.2 mmHg (80.0-100.0); Potassium - ABG Lab 3.87 mmol/L (3.70-5.30)
[2020-12-07 07:46] LABS: Puncture Site RRA
[2020-12-07 07:47] LABS: ALV-art Gradient 229.425 mmHg (0-20)
[2020-12-07] MEDS: Enoxaparin Sodium 60 MG/0.6 ML SYRINGE SC SCH ×2 (09:47→19:59)
[2020-12-07] MEDS: Ascorbic Acid 500 mg Chewable Tablet PER TUBE SCH (09:47)
[2020-12-07] MEDS: Zinc Sulfate 220 MG CAP PER TUBE SCH (09:47)
[2020-12-07] MEDS: Senokot S 8.6-50 MG TAB PO SCH ×2 (09:47→19:59)
[2020-12-07] MEDS: Polyethylene Glycol 3350 17 GM Packet PER TUBE SCH (09:48)
[2020-12-07] MEDS: Cefepime 2 GM in Sodium Chloride 0.9% 100 ML IVPB SCH (09:48)
[2020-12-07] MEDS ORDERED: methylPREDNISolone Sod Succ/PF 80 MG in Sodium Chloride 0.9% 250 ML 250 ML IVPB SCH (10:45)
[2020-12-07] MEDS: Fentanyl CADD 100 ML IV SCH ×2 (11:14→22:49)
[2020-12-07] MEDS: Lantus 1000 UNITS/10 ML VIAL SC SCH (20:00)
[2020-12-07] MEDS: Pantoprazole 40 MG VIAL IVP SCH (20:01)
[2020-12-07] MEDS: Cholecalciferol 1,000 UNITS (25 MCG) TAB PER TUBE SCH (20:29)
[2020-12-07] MEDS ORDERED: Fentanyl CADD 100 ML ONE (22:14)
[2020-12-08 07:58] LABS: Actual Bicarbonate (HCO3a) 33.2 mEq/L (22-28); Base Excess (BEa) 8.7 mEq/L (-2.0 to +3.0); CO2 Tension 44.4 mmHg (35.0-45.0); Calcium, Ionized (arterial) 1.07 mmol/L (1.12-1.30); O2 Tension (PaO2), arterial 77.4 mmHg (80.0-100.0); pH, Arterial 7.49 (7.35-7.45)
[2020-12-08 08:06] LABS: Puncture Site RRA
[2020-12-08] MEDS: Ascorbic Acid 500 mg Chewable Tablet PER TUBE SCH (09:08)
[2020-12-08] MEDS: Senokot S 8.6-50 MG TAB PO SCH ×2 (09:09→20:20)
[2020-12-08] MEDS: Zinc Sulfate 220 MG CAP PER TUBE SCH (09:09)
[2020-12-08] MEDS: Enoxaparin Sodium 60 MG/0.6 ML SYRINGE SC SCH ×2 (09:10→20:19)
[2020-12-08] MEDS: Polyethylene Glycol 3350 17 GM Packet PER TUBE SCH (09:11)
[2020-12-08] MEDS: Insulin Regular 300 UNITS/3 ML VIAL SC PRN ×4 (09:12→23:12)
[2020-12-08] MEDS: Fentanyl CADD 100 ML IV SCH (10:32)
[2020-12-08] MEDS: Lantus 1000 UNITS/10 ML VIAL SC SCH ×2 (11:49→20:19)
[2020-12-08] MEDS: Propofol 1,000 MG/100 ML VIAL IV PRN ×2 (14:03→20:19)
[2020-12-08] MEDS: Acetaminophen 650 MG Suppository PR PRN (16:27)
[2020-12-08] MEDS: VANCOMYCIN 1.25 GM/250 ML BAG 1.25 GM in Premix Bag 1 BAG IVPB SCH (16:38)
[2020-12-08 18:36] LABS: Hemoglobin 14.2 g/dL (14.0-18.0); Mean Corpuscular HGB CONC 35.9 g/dL (32.0-36.0); Mean Corpuscular Hemoglobin 31.5 pg (27.0-31.0); Mean Corpuscular Volume 87.6 fL (78.0-98.0); Mean Platelet Volume 7.8 fL (7.4-10.4); Platelet Count 288 thou/uL (130-400); RBC Distribution Width 14.1 % (11.5-14.5); White Blood Cell (WBC) Count 11.6 thou/uL (4.8-10.8)
[2020-12-08 18:53] LABS: ALT (SGPT) 43 U/L (8-55); AST (SGOT) 31 U/L (5-34); Alkaline Phosphatase 79 U/L (40-110); Anion Gap 13 mmol/L (10-20); BUN (Urea Nitrogen) 14 mg/dL (8.9-20.6); Bilirubin, Total 0.6 mg/dL (0.2-1.2); CRP (Inflammatory) Less than 0.50 mg/dL (= or < 0.5); Calc. Creatinine Clearance 200 mL/min (70-130); Calcium 8.1 mg/dL (7.8-10.44); Carbon Dioxide 30 mmol/L (22-29); Chloride 93 mmol/L (98-107); Globulin 2.9 g/dL (2.4-3.5); Glucose 188 mg/dL (70-105); Potassium 3.8 mmol/L (3.5-5.1); Protein, Total 5.9 g/dL (6.0-8.3); Sodium 132 mmol/L (136-145)
[2020-12-08 18:56] LABS: Band 10 % (5-11); Lymphocytes 3 % (21-51); MDiff Complete? YES; Metamyelocyte 3 % (0-0); Monocytes 1 % (0-10); Neutrophil 83 % (42-75); Nucleated RBC 1 % (0); Platelet Morphology Comment Appears Adequate; RBC Morphology Normal; Vacuoles SLIGHT
[2020-12-08] MEDS: Pantoprazole 40 MG VIAL IVP SCH (20:20)
[2020-12-08] MEDS: Cholecalciferol 1,000 UNITS (25 MCG) TAB PER TUBE SCH (20:20)
[2020-12-08] MEDS: Lorazepam 2 MG/ML VIAL SLOW IVP PRN (22:01)
[2020-12-08] MEDS ORDERED: Fentanyl CADD 100 ML ONE (23:46)
[2020-12-09] MEDS: Fentanyl CADD 100 ML IV SCH ×2 (00:29→13:03)
[2020-12-09] MEDS: Propofol 1,000 MG/100 ML VIAL IV PRN ×5 (00:49→20:27)
[2020-12-09] MEDS: methylPREDNISolone Sod Succ/PF 80 MG in Sodium Chloride 0.9% 250 ML 250 ML IVPB SCH (05:55)
[2020-12-09] MEDS: Insulin Regular 300 UNITS/3 ML VIAL SC PRN ×4 (06:14→23:25)
[2020-12-09 06:59] LABS: Base Excess 8.5 mEq/L (-2.0 to +3.0); Calcium, Ionized (venous) 1.05 mmol/L (1.16-1.32); Chloride (VBG) 95 mmol/L (98-106); Potassium (VBG) 3.87 mmol/L (3.70-5.30); Sodium 131.7 mmol/L (133-146)
[2020-12-09 07:00] LABS: Actual Bicarbonate (HCO3v) 33 mEq/L (22-28)
[2020-12-09 07:07] LABS: Anion Gap 12 mmol/L (10-20); BUN (Urea Nitrogen) 16 mg/dL (8.9-20.6); Calc. Creatinine Clearance 194 mL/min (70-130); Calcium 8.3 mg/dL (7.8-10.44); Carbon Dioxide 31 mmol/L (22-29); Chloride 94 mmol/L (98-107); Glucose 204 mg/dL (70-105); Potassium 3.9 mmol/L (3.5-5.1); Sodium 133 mmol/L (136-145)
[2020-12-09 08:30] LABS: Band 1 % (5-11); Eosinophils 2 % (0-10); Hemoglobin 14.7 g/dL (14.0-18.0); Lymphocytes 5 % (21-51); MDiff Complete? YES; Mean Corpuscular HGB CONC 35.1 g/dL (32.0-36.0); Mean Corpuscular Hemoglobin 30.7 pg (27.0-31.0); Mean Corpuscular Volume 87.6 fL (78.0-98.0); Mean Platelet Volume 7.6 fL (7.4-10.4); Monocytes 9 % (0-10); Neutrophil 83 % (42-75); Platelet Count 252 thou/uL (130-400); Platelet Morphology Comment Appears Adequate; RBC Distribution Width 14.3 % (11.5-14.5); Red Blood Cell (RBC) Count 4.77 mill/uL (4.70-6.10); Vacuoles SLIGHT; White Blood Cell (WBC) Count 10.9 thou/uL (4.8-10.8)
[2020-12-09] MEDS: Enoxaparin Sodium 60 MG/0.6 ML SYRINGE SC SCH ×2 (08:55→20:28)
[2020-12-09] MEDS: Senokot S 8.6-50 MG TAB PO SCH ×2 (08:55→20:28)
[2020-12-09] MEDS: Polyethylene Glycol 3350 17 GM Packet PER TUBE SCH (08:55)
[2020-12-09] MEDS: Zinc Sulfate 220 MG CAP PER TUBE SCH (08:55)
[2020-12-09] MEDS: Lorazepam 2 MG/ML VIAL SLOW IVP PRN ×2 (08:55→20:28)
[2020-12-09] MEDS: Lantus 1000 UNITS/10 ML VIAL SC SCH ×2 (08:56→20:29)
[2020-12-09] MEDS ORDERED: acetaZOLAMIDE Sodium 500 MG in Sodium Chloride 0.9% 50 ML IVPB SCH (09:00)
[2020-12-09] MEDS: Ascorbic Acid 500 mg Chewable Tablet PER TUBE SCH (09:01)
[2020-12-09] MEDS ORDERED: Fentanyl CADD 100 ML ONE (13:00)
[2020-12-09] MEDS: Cholecalciferol 1,000 UNITS (25 MCG) TAB PER TUBE SCH (20:28)
[2020-12-09] MEDS: Pantoprazole 40 MG VIAL IVP SCH (20:28)
[2020-12-10] MEDS: Lorazepam 2 MG/ML VIAL SLOW IVP PRN (01:15)
[2020-12-10] MEDS ORDERED: Fentanyl CADD 100 ML ONE ×2 (03:02→14:31)
[2020-12-10] MEDS: Fentanyl CADD 100 ML IV SCH ×2 (03:11→14:34)
[2020-12-10 04:40] LABS: Hemoglobin 14.5 g/dL (14.0-18.0); Lymphocytes 13 % (21-51); MDiff Complete? YES; Mean Corpuscular HGB CONC 34.7 g/dL (32.0-36.0); Mean Corpuscular Hemoglobin 30.7 pg (27.0-31.0); Mean Corpuscular Volume 88.6 fL (78.0-98.0); Mean Platelet Volume 8.5 fL (7.4-10.4); Monocytes 12 % (0-10); Neutrophil 75 % (42-75); Platelet Count 230 thou/uL (130-400); Platelet Morphology Comment Appears Adequate; RBC Distribution Width 14.6 % (11.5-14.5); RBC Morphology Normal; Red Blood Cell (RBC) Count 4.73 mill/uL (4.70-6.10); White Blood Cell (WBC) Count 11.3 thou/uL (4.8-10.8)
[2020-12-10 04:51] LABS: Anion Gap 12 mmol/L (10-20); BUN (Urea Nitrogen) 19 mg/dL (8.9-20.6); Calc. Creatinine Clearance 179 mL/min (70-130); Calcium 8.4 mg/dL (7.8-10.44); Carbon Dioxide 26 mmol/L (22-29); Chloride 99 mmol/L (98-107); Glucose 226 mg/dL (70-105); Potassium 3.7 mmol/L (3.5-5.1); Sodium 133 mmol/L (136-145)
[2020-12-10] MEDS: Propofol 1,000 MG/100 ML VIAL IV PRN ×3 (05:59→20:54)
[2020-12-10] MEDS: Insulin Regular 300 UNITS/3 ML VIAL SC PRN ×3 (06:01→17:53)
[2020-12-10 07:20] LABS: Actual Bicarbonate (HCO3a) 27.6 mEq/L (22-28); Base Excess (BEa) 2.7 mEq/L (-2.0 to +3.0); CO2 Tension 43.6 mmHg (35.0-45.0); Calcium, Ionized (arterial) 1.15 mmol/L (1.12-1.30); Carboxyhemoglobin (COHb) 0.9 gm% (0.0-3.0); Hemoglobin (Hb) 15.3 g/dL (14.0-18.0); O2 Tension (PaO2), arterial 72.6 mmHg (80.0-100.0); Potassium - ABG Lab 3.48 mmol/L (3.70-5.30); pH, Arterial 7.42 (7.35-7.45)
[2020-12-10 07:21] LABS: Puncture Site RRA
[2020-12-10] MEDS: Enoxaparin Sodium 60 MG/0.6 ML SYRINGE SC SCH ×2 (08:34→20:55)
[2020-12-10] MEDS: Polyethylene Glycol 3350 17 GM Packet PER TUBE SCH (08:34)
[2020-12-10] MEDS: Ascorbic Acid 500 mg Chewable Tablet PER TUBE SCH (08:34)
[2020-12-10] MEDS: Zinc Sulfate 220 MG CAP PER TUBE SCH (08:34)
[2020-12-10] MEDS: Senokot S 8.6-50 MG TAB PO SCH ×2 (08:34→20:55)
[2020-12-10] MEDS: Lantus 1000 UNITS/10 ML VIAL SC SCH ×2 (08:35→20:55)
[2020-12-10] MEDS: Pantoprazole 40 MG VIAL IVP SCH (20:54)
[2020-12-10] MEDS: Cholecalciferol 1,000 UNITS (25 MCG) TAB PER TUBE SCH (20:55)
[2020-12-11] MEDS: Propofol 1,000 MG/100 ML VIAL IV PRN ×3 (00:18→16:57)
[2020-12-11] MEDS ORDERED: Fentanyl CADD 100 ML ONE ×2 (03:55→17:56)
[2020-12-11] MEDS: Fentanyl CADD 100 ML IV SCH ×2 (04:05→17:57)
[2020-12-11 04:52] LABS: Anion Gap 15 mmol/L (10-20); BUN (Urea Nitrogen) 17 mg/dL (8.9-20.6); Calc. Creatinine Clearance 194 mL/min (70-130); Calcium 8.5 mg/dL (7.8-10.44); Carbon Dioxide 23 mmol/L (22-29); Chloride 98 mmol/L (98-107); Glucose 143 mg/dL (70-105); Potassium 4.3 mmol/L (3.5-5.1); Sodium 132 mmol/L (136-145)
[2020-12-11 05:22] LABS: Band 2 % (5-11); Hemoglobin 15.3 g/dL (14.0-18.0); Lymphocytes 11 % (21-51); MDiff Complete? YES; Mean Corpuscular HGB CONC 34.1 g/dL (32.0-36.0); Mean Corpuscular Hemoglobin 30.3 pg (27.0-31.0); Mean Corpuscular Volume 88.7 fL (78.0-98.0); Mean Platelet Volume 8.9 fL (7.4-10.4); Metamyelocyte 1 % (0-0); Monocytes 6 % (0-10); Myelocyte 1 % (0-0); Neutrophil 79 % (42-75); Platelet Count 200 thou/uL (130-400); Platelet Morphology Comment Appears Adequate; RBC Distribution Width 14.6 % (11.5-14.5); RBC Morphology Normal; Red Blood Cell (RBC) Count 5.05 mill/uL (4.70-6.10); White Blood Cell (WBC) Count 12.8 thou/uL (4.8-10.8)
[2020-12-11] MEDS: methylPREDNISolone Sod Succ/PF 80 MG in Sodium Chloride 0.9% 250 ML 250 ML IVPB SCH (05:51)
[2020-12-11 07:46] LABS: Actual Bicarbonate (HCO3a) 26.9 mEq/L (22-28); Base Excess (BEa) 3.4 mEq/L (-2.0 to +3.0); CO2 Tension 37.6 mmHg (35.0-45.0); Calcium, Ionized (arterial) 1.08 mmol/L (1.12-1.30); Carboxyhemoglobin (COHb) 0.8 gm% (0.0-3.0); Hemoglobin (Hb) 15.6 g/dL (14.0-18.0); O2 Tension (PaO2), arterial 82.6 mmHg (80.0-100.0); Potassium - ABG Lab 3.85 mmol/L (3.70-5.30); pH, Arterial 7.47 (7.35-7.45)
[2020-12-11 07:48] LABS: Puncture Site LRA
[2020-12-11] MEDS: Polyethylene Glycol 3350 17 GM Packet PER TUBE SCH (08:26)
[2020-12-11] MEDS: Zinc Sulfate 220 MG CAP PER TUBE SCH (08:26)
[2020-12-11] MEDS: Ascorbic Acid 500 mg Chewable Tablet PER TUBE SCH (08:26)
[2020-12-11] MEDS: Enoxaparin Sodium 60 MG/0.6 ML SYRINGE SC SCH ×2 (08:26→20:37)
[2020-12-11] MEDS: Senokot S 8.6-50 MG TAB PO SCH ×2 (08:26→20:37)
[2020-12-11] MEDS: Lantus 1000 UNITS/10 ML VIAL SC SCH ×2 (08:27→20:37)
[2020-12-11] MEDS: Diazepam 10 MG/2 ML SYRINGE IVP PRN (12:27)
[2020-12-11] MEDS: Dexmedetomidine 1,000 MCG in Sodium Chloride 0.9% 250 ML 240 ML IVPB SCH ×2 (13:01→22:50)
[2020-12-11] MEDS: Insulin Regular 300 UNITS/3 ML VIAL SC PRN (15:58)
[2020-12-11] MEDS: Lorazepam 2 MG/ML VIAL SLOW IVP PRN (19:12)
[2020-12-11] MEDS: Pantoprazole 40 MG VIAL IVP SCH (20:37)
[2020-12-11] MEDS: Cholecalciferol 1,000 UNITS (25 MCG) TAB PER TUBE SCH (20:43)
[2020-12-12] MEDS: Propofol 1,000 MG/100 ML VIAL IV PRN (02:04)
[2020-12-12 04:25] LABS: Anion Gap 13 mmol/L (10-20); BUN (Urea Nitrogen) 15 mg/dL (8.9-20.6); Calc. Creatinine Clearance 204 mL/min (70-130); Calcium 8.5 mg/dL (7.8-10.44); Carbon Dioxide 22 mmol/L (22-29); Chloride 100 mmol/L (98-107); Glucose 181 mg/dL (70-105); Potassium 3.8 mmol/L (3.5-5.1); Sodium 131 mmol/L (136-145)
[2020-12-12 04:32] LABS: Band 1 % (5-11); Hemoglobin 14.8 g/dL (14.0-18.0); Lymphocytes 17 % (21-51); MDiff Complete? YES; Mean Corpuscular HGB CONC 33.8 g/dL (32.0-36.0); Mean Corpuscular Volume 88.8 fL (78.0-98.0); Mean Platelet Volume 8.7 fL (7.4-10.4); Monocytes 6 % (0-10); Neutrophil 76 % (42-75); Platelet Count 171 thou/uL (130-400); Platelet Morphology Comment Appears Adequate; RBC Distribution Width 14.4 % (11.5-14.5); RBC Morphology Normal; Red Blood Cell (RBC) Count 4.92 mill/uL (4.70-6.10)
[2020-12-12] MEDS: Dexmedetomidine 1,000 MCG in Sodium Chloride 0.9% 250 ML 240 ML IVPB SCH ×2 (07:22→16:52)
[2020-12-12 07:43] LABS: Actual Bicarbonate (HCO3a) 25.6 mEq/L (22-28); Base Excess (BEa) 1.7 mEq/L (-2.0 to +3.0); CO2 Tension 37.9 mmHg (35.0-45.0); Calcium, Ionized (arterial) 1.13 mmol/L (1.12-1.30); Carboxyhemoglobin (COHb) 1.1 gm% (0.0-3.0); Hemoglobin (Hb) 14.8 g/dL (14.0-18.0); O2 Tension (PaO2), arterial 68.7 mmHg (80.0-100.0); Potassium - ABG Lab 3.64 mmol/L (3.70-5.30); pH, Arterial 7.45 (7.35-7.45)
[2020-12-12 07:44] LABS: Puncture Site RRA
[2020-12-12 07:45] LABS: ALV-art Gradient 133.475 mmHg (0-20)
[2020-12-12] MEDS ORDERED: Fentanyl CADD 100 ML ONE (09:22)
[2020-12-12] MEDS: Fentanyl CADD 100 ML IV SCH (09:23)
[2020-12-12] MEDS: Polyethylene Glycol 3350 17 GM Packet PER TUBE SCH (10:29)
[2020-12-12] MEDS: Senokot S 8.6-50 MG TAB PO SCH ×2 (10:29→20:31)
[2020-12-12] MEDS: Lantus 1000 UNITS/10 ML VIAL SC SCH ×2 (10:31→20:31)
[2020-12-12] MEDS: Zinc Sulfate 220 MG CAP PER TUBE SCH (10:31)
[2020-12-12] MEDS: Enoxaparin Sodium 60 MG/0.6 ML SYRINGE SC SCH ×2 (10:31→20:06)
[2020-12-12] MEDS: Ascorbic Acid 500 mg Chewable Tablet PER TUBE SCH (10:31)
[2020-12-12] MEDS: Insulin Regular 300 UNITS/3 ML VIAL SC PRN (10:42)
[2020-12-12] MEDS: Diazepam 10 MG/2 ML SYRINGE IVP PRN ×2 (15:08→18:23)
[2020-12-12] MEDS: Cholecalciferol 1,000 UNITS (25 MCG) TAB PER TUBE SCH (20:06)
[2020-12-12] MEDS: Lorazepam 2 MG/ML VIAL SLOW IVP PRN (20:29)
[2020-12-12] MEDS: Pantoprazole 40 MG GRANULES PACKET PER TUBE SCH (20:29)
[2020-12-13] MEDS: Dexmedetomidine 1,000 MCG in Sodium Chloride 0.9% 250 ML 240 ML IVPB SCH ×3 (00:36→18:05)
[2020-12-13] MEDS: Propofol 1,000 MG/100 ML VIAL IV PRN ×2 (00:36→09:01)
[2020-12-13] MEDS: Vecuronium 10 MG VIAL IV PRN (00:37)
[2020-12-13 00:51] LABS: Actual Bicarbonate (HCO3a) 24.1 mEq/L (22-28); Base Excess (BEa) -0.2 mEq/L (-2.0 to +3.0); CO2 Tension 38.3 mmHg (35.0-45.0); Calcium, Ionized (arterial) 1.14 mmol/L (1.12-1.30); Carboxyhemoglobin (COHb) 0.8 gm% (0.0-3.0); Hemoglobin (Hb) 14.7 g/dL (14.0-18.0); O2 Tension (PaO2), arterial 61.2 mmHg (80.0-100.0); Potassium - ABG Lab 3.83 mmol/L (3.70-5.30); pH, Arterial 7.42 (7.35-7.45)
[2020-12-13 00:53] LABS: Puncture Site LBR
[2020-12-13 00:54] LABS: ALV-art Gradient 176.125 mmHg (0-20)
[2020-12-13] MEDS ORDERED: Fentanyl CADD 100 ML ONE (01:15)
[2020-12-13] MEDS: Fentanyl CADD 100 ML IV SCH (01:35)
[2020-12-13 04:20] LABS: Anion Gap 12 mmol/L (10-20); BUN (Urea Nitrogen) 13 mg/dL (8.9-20.6); Calc. Creatinine Clearance 215 mL/min (70-130); Calcium 8.3 mg/dL (7.8-10.44); Carbon Dioxide 24 mmol/L (22-29); Chloride 99 mmol/L (98-107); Glucose 128 mg/dL (70-105); Potassium 3.9 mmol/L (3.5-5.1); Sodium 131 mmol/L (136-145)
[2020-12-13 04:21] LABS: Band 3 % (5-11); Eosinophils 1 % (0-10); Hemoglobin 13.9 g/dL (14.0-18.0); Hypochromia SLIGHT = 6-15 cells (100X) (0-5/hpf); Lymphocytes 4 % (21-51); MDiff Complete? YES; Mean Corpuscular HGB CONC 33.9 g/dL (32.0-36.0); Mean Corpuscular Hemoglobin 30.2 pg (27.0-31.0); Mean Corpuscular Volume 89.3 fL (78.0-98.0); Mean Platelet Volume 8.7 fL (7.4-10.4); Monocytes 7 % (0-10); Neutrophil 85 % (42-75); Platelet Count 179 thou/uL (130-400); Platelet Morphology Comment Appears Adequate; RBC Distribution Width 14.5 % (11.5-14.5); Red Blood Cell (RBC) Count 4.58 mill/uL (4.70-6.10)
[2020-12-13] MEDS: Enoxaparin Sodium 60 MG/0.6 ML SYRINGE SC SCH ×2 (09:23→20:46)
[2020-12-13] MEDS: Ascorbic Acid 500 mg Chewable Tablet PER TUBE SCH (09:23)
[2020-12-13] MEDS: Lantus 1000 UNITS/10 ML VIAL SC SCH ×2 (09:24→20:47)
[2020-12-13] MEDS: Polyethylene Glycol 3350 17 GM Packet PER TUBE SCH (09:25)
[2020-12-13] MEDS: Senokot S 8.6-50 MG TAB PO SCH ×2 (09:25→23:30)
[2020-12-13] MEDS: Zinc Sulfate 220 MG CAP PER TUBE SCH (09:26)
[2020-12-13] MEDS: Insulin Regular 300 UNITS/3 ML VIAL SC PRN (10:30)
[2020-12-13] MEDS ORDERED: Lorazepam 2 MG/ML VIAL SLOW IVP PRN (14:11)
[2020-12-13] MEDS ORDERED: Morphine 2 MG/ML VIAL SLOW IVP PRN (14:12)
[2020-12-13] MEDS ORDERED: Haloperidol Lactate 5 MG/ML VIAL SLOW IVP PRN (17:03)
[2020-12-13] MEDS ORDERED: OLANZapine 10 MG VIAL IM PRN (17:04)
[2020-12-13] MEDS: Acetaminophen 650 MG Suppository PR PRN (20:46)
[2020-12-13] MEDS: methylPREDNISolone Sod Succ/PF 80 MG in Sodium Chloride 0.9% 250 ML 250 ML IVPB SCH (22:00)
[2020-12-13] MEDS: Pantoprazole 40 MG GRANULES PACKET PER TUBE SCH (23:29)
[2020-12-14] MEDS: Acetaminophen 650 MG Suppository PR PRN (02:20)
[2020-12-14] MEDS: Dexmedetomidine 1,000 MCG in Sodium Chloride 0.9% 250 ML 240 ML IVPB SCH ×2 (02:33→11:51)
[2020-12-14 04:39] LABS: Mean Corpuscular HGB CONC 34.3 g/dL (32.0-36.0); Mean Corpuscular Hemoglobin 30.6 pg (27.0-31.0); Mean Corpuscular Volume 89.1 fL (78.0-98.0); Mean Platelet Volume 8.3 fL (7.4-10.4); Platelet Count 197 thou/uL (130-400); RBC Distribution Width 14.2 % (11.5-14.5); Red Blood Cell (RBC) Count 4.59 mill/uL (4.70-6.10); White Blood Cell (WBC) Count 10.3 thou/uL (4.8-10.8)
[2020-12-14 04:41] LABS: Chloride 103 mmol/L (98-107); Potassium 3.3 mmol/L (3.5-5.1); Sodium 137 mmol/L (136-145)
[2020-12-14 04:42] LABS: Calcium 8.7 mg/dL (7.8-10.44); Glucose 107 mg/dL (70-105)
[2020-12-14 04:44] LABS: Carbon Dioxide 26 mmol/L (22-29)
[2020-12-14 04:46] LABS: BUN (Urea Nitrogen) 8 mg/dL (8.9-20.6); Calc. Creatinine Clearance 223 mL/min (70-130)
[2020-12-14 04:59] LABS: Band 12 % (5-11); Eosinophils 1 % (0-10); Lymphocytes 7 % (21-51); MDiff Complete? YES; Monocytes 8 % (0-10); Neutrophil 72 % (42-75)
[2020-12-14 05:03] LABS: Anion Gap 11 mmol/L (10-20)
[2020-12-14] MEDS: Potassium Chloride 20 MEQ in Premix Bag 1 BAG IVPB SCH ×4 (07:30→18:47)
[2020-12-14] MEDS: Polyethylene Glycol 3350 17 GM Packet PER TUBE SCH (09:40)
[2020-12-14] MEDS: Lantus 1000 UNITS/10 ML VIAL SC SCH ×2 (09:40→20:40)
[2020-12-14] MEDS: Enoxaparin Sodium 60 MG/0.6 ML SYRINGE SC SCH ×2 (09:40→20:40)
[2020-12-14] MEDS: Senokot S 8.6-50 MG TAB PO SCH ×2 (15:19→20:41)
[2020-12-14] MEDS: Pantoprazole 40 MG GRANULES PACKET PER TUBE SCH (20:41)
[2020-12-15] MEDS: Dexmedetomidine 1,000 MCG in Sodium Chloride 0.9% 250 ML 240 ML IVPB SCH (01:58)
[2020-12-15 05:39] LABS: Hemoglobin 14.7 g/dL (14.0-18.0); Mean Corpuscular HGB CONC 32.3 g/dL (32.0-36.0); Mean Corpuscular Hemoglobin 29.5 pg (27.0-31.0); Mean Corpuscular Volume 91.3 fL (78.0-98.0); Mean Platelet Volume 8.1 fL (7.4-10.4); Platelet Count 197 thou/uL (130-400); RBC Distribution Width 14.5 % (11.5-14.5); Red Blood Cell (RBC) Count 4.98 mill/uL (4.70-6.10); White Blood Cell (WBC) Count 5.5 thou/uL (4.8-10.8)
[2020-12-15 05:50] LABS: Anion Gap 16 mmol/L (10-20); BUN (Urea Nitrogen) 13 mg/dL (8.9-20.6); Calc. Creatinine Clearance 203 mL/min (70-130); Calcium 8.7 mg/dL (7.8-10.44); Carbon Dioxide 22 mmol/L (22-29); Chloride 103 mmol/L (98-107); Glucose 89 mg/dL (70-105); Potassium 4.1 mmol/L (3.5-5.1); Sodium 137 mmol/L (136-145)
[2020-12-15 06:06] LABS: Band 3 % (5-11); Eosinophils 3 % (0-10); Lymphocytes 11 % (21-51); MDiff Complete? YES; Monocytes 10 % (0-10); Neutrophil 72 % (42-75)
[2020-12-15] MEDS: Enoxaparin Sodium 60 MG/0.6 ML SYRINGE SC SCH ×2 (09:26→21:20)
[2020-12-15] MEDS: Polyethylene Glycol 3350 17 GM Packet PER TUBE SCH (09:27)
[2020-12-15] MEDS: Lantus 1000 UNITS/10 ML VIAL SC SCH (09:27)
[2020-12-15] MEDS: Senokot S 8.6-50 MG TAB PO SCH ×2 (09:27→21:22)
[2020-12-15] MEDS: Pantoprazole 40 MG GRANULES PACKET PER TUBE SCH (21:21)
[2020-12-15] MEDS: methylPREDNISolone Sod Succ 40 MG VIAL IVP SCH (21:21)
[2020-12-16] MEDS: Lantus 1000 UNITS/10 ML VIAL SC SCH ×3 (00:43→22:15)
[2020-12-16 04:56] LABS: Hemoglobin 14.5 g/dL (14.0-18.0); Mean Corpuscular HGB CONC 31.2 g/dL (32.0-36.0); Mean Corpuscular Hemoglobin 28.7 pg (27.0-31.0); Mean Corpuscular Volume 91.9 fL (78.0-98.0); Mean Platelet Volume 8.4 fL (7.4-10.4); Platelet Count 254 thou/uL (130-400); RBC Distribution Width 14.4 % (11.5-14.5); Red Blood Cell (RBC) Count 5.04 mill/uL (4.70-6.10)
[2020-12-16 05:05] LABS: Anion Gap 19 mmol/L (10-20); BUN (Urea Nitrogen) 12 mg/dL (8.9-20.6); Calc. Creatinine Clearance 157 mL/min (70-130); Calcium 8.6 mg/dL (7.8-10.44); Carbon Dioxide 18 mmol/L (22-29); Chloride 99 mmol/L (98-107); Glucose 138 mg/dL (70-105); Potassium 4.2 mmol/L (3.5-5.1); Sodium 132 mmol/L (136-145)
[2020-12-16 05:35] LABS: Band 14 % (5-11); Lymphocytes 14 % (21-51); MDiff Complete? YES; Monocytes 2 % (0-10); Neutrophil 70 % (42-75)
[2020-12-16] MEDS: methylPREDNISolone Sod Succ 40 MG VIAL IVP SCH ×2 (09:49→22:14)
[2020-12-16] MEDS: Enoxaparin Sodium 60 MG/0.6 ML SYRINGE SC SCH ×2 (09:49→22:14)
[2020-12-16] MEDS: Polyethylene Glycol 3350 17 GM Packet PER TUBE SCH (09:50)
[2020-12-16] MEDS: Senokot S 8.6-50 MG TAB PO SCH ×2 (09:50→22:46)
[2020-12-16] MEDS: ALPRAZolam 0.25 MG TAB PO SCH ×2 (15:05→22:14)
[2020-12-16] MEDS: Pantoprazole 40 MG GRANULES PACKET PER TUBE SCH (22:14)
[2020-12-17 04:44] LABS: Anion Gap 14 mmol/L (10-20); BUN (Urea Nitrogen) 16 mg/dL (8.9-20.6); Calc. Creatinine Clearance 161 mL/min (70-130); Calcium 8.7 mg/dL (7.8-10.44); Carbon Dioxide 25 mmol/L (22-29); Chloride 102 mmol/L (98-107); Glucose 153 mg/dL (70-105); Potassium 3.9 mmol/L (3.5-5.1); Sodium 137 mmol/L (136-145)
[2020-12-17 04:49] LABS: Mean Corpuscular HGB CONC 33.7 g/dL (32.0-36.0); Mean Corpuscular Hemoglobin 30.5 pg (27.0-31.0); Mean Corpuscular Volume 90.7 fL (78.0-98.0); Mean Platelet Volume 8.3 fL (7.4-10.4); Platelet Count 241 thou/uL (130-400); RBC Distribution Width 14.1 % (11.5-14.5); Red Blood Cell (RBC) Count 4.92 mill/uL (4.70-6.10); White Blood Cell (WBC) Count 5.5 thou/uL (4.8-10.8)
[2020-12-17 05:04] LABS: Band 4 % (5-11); Lymphocytes 22 % (21-51); MDiff Complete? YES; Monocytes 2 % (0-10); Neutrophil 72 % (42-75)
[2020-12-17] MEDS: Senokot S 8.6-50 MG TAB PO SCH ×3 (09:59→20:27)
[2020-12-17] MEDS: Enoxaparin Sodium 60 MG/0.6 ML SYRINGE SC SCH ×2 (10:06→20:27)
[2020-12-17] MEDS: ALPRAZolam 0.25 MG TAB PO SCH ×3 (10:06→20:27)
[2020-12-17] MEDS: methylPREDNISolone Sod Succ 40 MG VIAL IVP SCH ×2 (10:06→20:28)
[2020-12-17] MEDS: Lantus 1000 UNITS/10 ML VIAL SC SCH ×2 (10:07→20:30)
[2020-12-17] MEDS: Polyethylene Glycol 3350 17 GM Packet PER TUBE SCH (10:09)
[2020-12-17] MEDS ORDERED: Mag-Al Plus 1200 MG/1200 MG/120 MG/30 ML UDCUP PO PRN (10:58)
[2020-12-17 11:00] VITALS: BMI 28.4
[2020-12-17] MEDS: Insulin Regular 300 UNITS/3 ML VIAL SC PRN (16:59)
[2020-12-17] MEDS ORDERED: Dextrose 50% Abboject 50 ML SYRINGE SLOW IVP PRN (20:23)
[2020-12-17] MEDS ORDERED: Dextrose 5% in Water 1,000 ML IV PRN (20:23)
[2020-12-17] MEDS ORDERED: HumaLOG 300 UNITS/3 ML VIAL SC PRN (20:23)
[2020-12-17] MEDS: Pantoprazole 40 MG GRANULES PACKET PO SCH (20:27)
[2020-12-18 06:18] LABS: Hemoglobin 14.6 g/dL (14.0-18.0); Mean Corpuscular Hemoglobin 29.7 pg (27.0-31.0); Mean Corpuscular Volume 90.1 fL (78.0-98.0); Mean Platelet Volume 8.2 fL (7.4-10.4); Platelet Count 249 thou/uL (130-400); White Blood Cell (WBC) Count 5.5 thou/uL (4.8-10.8)
[2020-12-18 06:29] LABS: Anion Gap 15 mmol/L (10-20); BUN (Urea Nitrogen) 15 mg/dL (8.9-20.6); Calc. Creatinine Clearance 160 mL/min (70-130); Calcium 8.8 mg/dL (7.8-10.44); Carbon Dioxide 25 mmol/L (22-29); Chloride 103 mmol/L (98-107); Glucose 135 mg/dL (70-105); Potassium 3.7 mmol/L (3.5-5.1); Sodium 139 mmol/L (136-145)
[2020-12-18] MEDS: ALPRAZolam 0.25 MG TAB PO SCH ×3 (08:23→20:48)
[2020-12-18] MEDS: Enoxaparin Sodium 60 MG/0.6 ML SYRINGE SC SCH ×2 (08:23→20:47)
[2020-12-18] MEDS: methylPREDNISolone Sod Succ 40 MG VIAL IVP SCH (08:24)
[2020-12-18] MEDS: Lantus 1000 UNITS/10 ML VIAL SC SCH ×2 (08:27→20:49)
[2020-12-18] MEDS: Senokot S 8.6-50 MG TAB PO SCH ×2 (08:28→20:47)
[2020-12-18 08:40] LABS: Band 4 % (5-11); Eosinophils 3 % (0-10); Lymphocytes 37 % (21-51); MDiff Complete? YES; Monocytes 3 % (0-10); Neutrophil 53 % (42-75); Platelet Morphology Comment Appears Adequate; RBC Morphology Normal
[2020-12-18] MEDS ORDERED: Loperamide HCl 2 MG CAP PO PRN (12:49)
[2020-12-18] MEDS: Pantoprazole 40 MG GRANULES PACKET PO SCH (20:47)
[2020-12-19 05:56] LABS: Anion Gap 13 mmol/L (10-20); BUN (Urea Nitrogen) 14 mg/dL (8.9-20.6); Calc. Creatinine Clearance 165 mL/min (70-130); Calcium 8.7 mg/dL (7.8-10.44); Carbon Dioxide 25 mmol/L (22-29); Chloride 105 mmol/L (98-107); Glucose 125 mg/dL (70-105); Potassium 3.2 mmol/L (3.5-5.1); Sodium 140 mmol/L (136-145)
[2020-12-19 06:05] LABS: Hemoglobin 13.8 g/dL (14.0-18.0); Mean Corpuscular Hemoglobin 29.6 pg (27.0-31.0); Mean Corpuscular Volume 89.9 fL (78.0-98.0); Mean Platelet Volume 9.2 fL (7.4-10.4); Platelet Count 189 thou/uL (130-400); RBC Distribution Width 13.8 % (11.5-14.5); Red Blood Cell (RBC) Count 4.65 mill/uL (4.70-6.10); White Blood Cell (WBC) Count 5.5 thou/uL (4.8-10.8)
[2020-12-19 06:59] LABS: Band 1 % (5-11); Eosinophils 7 % (0-10); Lymphocytes 39 % (21-51); MDiff Complete? YES; Monocytes 3 % (0-10); Neutrophil 50 % (42-75)
[2020-12-19] MEDS ORDERED: Potassium Chloride 20 MEQ TAB PO SCH (07:00)
[2020-12-19] MEDS: Enoxaparin Sodium 60 MG/0.6 ML SYRINGE SC SCH ×2 (07:32→21:07)
[2020-12-19] MEDS: Senokot S 8.6-50 MG TAB PO SCH ×2 (07:37→21:07)
[2020-12-19] MEDS: ALPRAZolam 0.25 MG TAB PO SCH ×3 (07:37→21:07)
[2020-12-19] MEDS ORDERED: methylPREDNISolone Sod Succ 40 MG VIAL IVP SCH (09:00)
[2020-12-19] MEDS: Lantus 1000 UNITS/10 ML VIAL SC SCH ×2 (09:23→21:08)
[2020-12-19] MEDS: Pantoprazole 40 MG GRANULES PACKET PO SCH (21:07)
[2020-12-20 05:59] LABS: Hemoglobin 13.4 g/dL (14.0-18.0); Mean Corpuscular HGB CONC 33.3 g/dL (32.0-36.0); Mean Corpuscular Hemoglobin 29.8 pg (27.0-31.0); Mean Corpuscular Volume 89.7 fL (78.0-98.0); Mean Platelet Volume 7.9 fL (7.4-10.4); Platelet Count 215 thou/uL (130-400); RBC Distribution Width 13.9 % (11.5-14.5); White Blood Cell (WBC) Count 5.8 thou/uL (4.8-10.8)
[2020-12-20 06:10] LABS: Anion Gap 11 mmol/L (10-20); BUN (Urea Nitrogen) 13 mg/dL (8.9-20.6); Calc. Creatinine Clearance 160 mL/min (70-130); Calcium 8.7 mg/dL (7.8-10.44); Carbon Dioxide 25 mmol/L (22-29); Chloride 106 mmol/L (98-107); Glucose 116 mg/dL (70-105); Potassium 3.1 mmol/L (3.5-5.1); Sodium 139 mmol/L (136-145)
[2020-12-20 06:28] LABS: Band 2 % (5-11); Eosinophils 4 % (0-10); Lymphocytes 39 % (21-51); MDiff Complete? YES; Monocytes 4 % (0-10); Neutrophil 51 % (42-75)
[2020-12-20] MEDS ORDERED: Potassium Chloride 20 MEQ TAB PO SCH ×2 (06:30→09:00)
[2020-12-20] MEDS: predniSONE 20 MG TAB PO SCH (09:25)
[2020-12-20] MEDS: ALPRAZolam 0.25 MG TAB PO SCH ×3 (09:25→21:09)
[2020-12-20] MEDS: Enoxaparin Sodium 60 MG/0.6 ML SYRINGE SC SCH ×2 (09:25→21:09)
[2020-12-20] MEDS: Senokot S 8.6-50 MG TAB PO SCH ×2 (09:26→21:09)
[2020-12-20] MEDS: Lantus 1000 UNITS/10 ML VIAL SC SCH ×2 (09:28→21:09)
[2020-12-20] MEDS: Insulin Regular 300 UNITS/3 ML VIAL SC PRN (17:38)
[2020-12-20] MEDS: Pantoprazole 40 MG GRANULES PACKET PO SCH (21:09)
[2020-12-21] MEDS: Senokot S 8.6-50 MG TAB PO SCH ×2 (08:11→20:00)
[2020-12-21] MEDS: predniSONE 20 MG TAB PO SCH (08:11)
[2020-12-21] MEDS: Enoxaparin Sodium 60 MG/0.6 ML SYRINGE SC SCH ×2 (08:11→20:00)
[2020-12-21] MEDS: ALPRAZolam 0.25 MG TAB PO SCH ×3 (08:11→20:00)
[2020-12-21] MEDS: Lantus 1000 UNITS/10 ML VIAL SC SCH ×2 (08:15→20:01)
[2020-12-21 08:48] LABS: Anion Gap 12 mmol/L (10-20); BUN (Urea Nitrogen) 12 mg/dL (8.9-20.6); Calc. Creatinine Clearance 165 mL/min (70-130); Calcium 8.4 mg/dL (7.8-10.44); Carbon Dioxide 24 mmol/L (22-29); Chloride 105 mmol/L (98-107); Glucose 112 mg/dL (70-105); Potassium 3.1 mmol/L (3.5-5.1); Sodium 138 mmol/L (136-145)
[2020-12-21 09:10] LABS: Band 1 % (5-11); Eosinophils 2 % (0-10); Lymphocytes 39 % (21-51); MDiff Complete? YES; Mean Corpuscular Hemoglobin 29.7 pg (27.0-31.0); Mean Corpuscular Volume 87.5 fL (78.0-98.0); Monocytes 4 % (0-10); Neutrophil 53 % (42-75); Platelet Count 211 thou/uL (130-400); Platelet Morphology Comment Appears Adequate; RBC Distribution Width 13.8 % (11.5-14.5); RBC Morphology Normal; Red Blood Cell (RBC) Count 4.38 mill/uL (4.70-6.10); White Blood Cell (WBC) Count 5.4 thou/uL (4.8-10.8)
[2020-12-21] MEDS ORDERED: Potassium Chloride 20 MEQ TAB PO SCH ×2 (10:00→17:00)
[2020-12-21] MEDS: Insulin Regular 300 UNITS/3 ML VIAL SC PRN (17:24)
[2020-12-21] MEDS: Pantoprazole 40 MG GRANULES PACKET PO SCH (20:00)
[2020-12-22] MEDS: predniSONE 20 MG TAB PO SCH (08:22)
[2020-12-22] MEDS: Enoxaparin Sodium 60 MG/0.6 ML SYRINGE SC SCH ×2 (08:22→20:58)
[2020-12-22] MEDS: ALPRAZolam 0.25 MG TAB PO SCH ×3 (08:22→20:57)
[2020-12-22] MEDS: Senokot S 8.6-50 MG TAB PO SCH ×2 (08:23→20:57)
[2020-12-22] MEDS: Lantus 1000 UNITS/10 ML VIAL SC SCH ×2 (08:24→20:58)
[2020-12-22 08:26] LABS: Hemoglobin 12.3 g/dL (14.0-18.0); Mean Corpuscular HGB CONC 34.2 g/dL (32.0-36.0); Mean Corpuscular Hemoglobin 30.2 pg (27.0-31.0); Mean Corpuscular Volume 88.3 fL (78.0-98.0); Mean Platelet Volume 7.7 fL (7.4-10.4); Platelet Count 204 thou/uL (130-400); Red Blood Cell (RBC) Count 4.08 mill/uL (4.70-6.10); White Blood Cell (WBC) Count 4.8 thou/uL (4.8-10.8)
[2020-12-22 08:36] LABS: ALT (SGPT) 55 U/L (8-55); AST (SGOT) 23 U/L (5-34); Albumin 3.1 g/dL (3.5-5.0); Alkaline Phosphatase 65 U/L (40-110); Anion Gap 9 mmol/L (10-20); BUN (Urea Nitrogen) 12 mg/dL (8.9-20.6); Bilirubin, Total 0.4 mg/dL (0.2-1.2); CRP (Inflammatory) Less than 0.50 mg/dL (= or < 0.5); Calc. Creatinine Clearance 171 mL/min (70-130); Calcium 8.3 mg/dL (7.8-10.44); Carbon Dioxide 25 mmol/L (22-29); Chloride 107 mmol/L (98-107); Globulin 2.5 g/dL (2.4-3.5); Glucose 96 mg/dL (70-105); Potassium 3.3 mmol/L (3.5-5.1); Protein, Total 5.6 g/dL (6.0-8.3); Sodium 138 mmol/L (136-145)
[2020-12-22 10:39] LABS: Eosinophils 12 % (0-10); Lymphocytes 36 % (21-51); MDiff Complete? YES; Monocytes 6 % (0-10); Neutrophil 46 % (42-75); Platelet Morphology Comment Appears Adequate; RBC Morphology Normal
[2020-12-22] MEDS ORDERED: Potassium Chloride 20 MEQ TAB PO SCH (13:15)
[2020-12-22] MEDS: metFORMIN 500 MG TAB PO SCH (17:21)
[2020-12-22] MEDS: Insulin Regular 300 UNITS/3 ML VIAL SC PRN (17:22)
[2020-12-22] MEDS: Pantoprazole 40 MG GRANULES PACKET PO SCH (20:58)
[2020-12-23 06:58] LABS: Band 1 % (5-11); Eosinophils 1 % (0-10); Hemoglobin 12.3 g/dL (14.0-18.0); Hypochromia SLIGHT = 6-15 cells (100X) (0-5/hpf); Lymphocytes 35 % (21-51); MDiff Complete? YES; Mean Corpuscular HGB CONC 34.8 g/dL (32.0-36.0); Mean Corpuscular Hemoglobin 30.9 pg (27.0-31.0); Mean Corpuscular Volume 88.8 fL (78.0-98.0); Mean Platelet Volume 7.7 fL (7.4-10.4); Monocytes 14 % (0-10); Neutrophil 49 % (42-75); Platelet Count 207 thou/uL (130-400); Platelet Morphology Comment Appears Adequate; RBC Distribution Width 13.9 % (11.5-14.5); Red Blood Cell (RBC) Count 3.99 mill/uL (4.70-6.10)
[2020-12-23 07:03] LABS: Anion Gap 9 mmol/L (10-20); BUN (Urea Nitrogen) 9 mg/dL (8.9-20.6); Calc. Creatinine Clearance 160 mL/min (70-130); Calcium 8.4 mg/dL (7.8-10.44); Carbon Dioxide 31 mmol/L (22-29); Chloride 105 mmol/L (98-107); Glucose 86 mg/dL (70-105); Potassium 3.6 mmol/L (3.5-5.1); Sodium 141 mmol/L (136-145)
[2020-12-23] MEDS: metFORMIN 500 MG TAB PO SCH ×2 (08:33→17:56)
[2020-12-23] MEDS: ALPRAZolam 0.25 MG TAB PO SCH ×2 (08:33→20:02)
[2020-12-23] MEDS: predniSONE 20 MG TAB PO SCH (08:33)
[2020-12-23] MEDS: Enoxaparin Sodium 60 MG/0.6 ML SYRINGE SC SCH ×2 (08:37→20:02)
[2020-12-23] MEDS: Senokot S 8.6-50 MG TAB PO SCH ×2 (08:41→20:02)
[2020-12-23] MEDS: Lantus 1000 UNITS/10 ML VIAL SC SCH (08:41)
[2020-12-23] MEDS: Pantoprazole 40 MG GRANULES PACKET PO SCH (20:02)
[2020-12-24 07:15] LABS: Anion Gap 9 mmol/L (10-20); BUN (Urea Nitrogen) 9 mg/dL (8.9-20.6); Calc. Creatinine Clearance 165 mL/min (70-130); Calcium 8.7 mg/dL (7.8-10.44); Carbon Dioxide 31 mmol/L (22-29); Chloride 104 mmol/L (98-107); Glucose 87 mg/dL (70-105); Potassium 3.2 mmol/L (3.5-5.1); Sodium 141 mmol/L (136-145)
[2020-12-24] MEDS ORDERED: Potassium Chloride 20 MEQ TAB PO SCH ×3 (08:00→14:45)
[2020-12-24 08:03] LABS: Hemoglobin 12.4 g/dL (14.0-18.0); Mean Corpuscular HGB CONC 35.3 g/dL (32.0-36.0); Mean Corpuscular Volume 87.8 fL (78.0-98.0); Mean Platelet Volume 7.5 fL (7.4-10.4); Platelet Count 221 thou/uL (130-400); White Blood Cell (WBC) Count 4.7 thou/uL (4.8-10.8)
[2020-12-24] MEDS: Enoxaparin Sodium 60 MG/0.6 ML SYRINGE SC SCH (08:31)
[2020-12-24] MEDS: metFORMIN 500 MG TAB PO SCH ×2 (08:31→16:08)
[2020-12-24] MEDS: Senokot S 8.6-50 MG TAB PO SCH (08:31)
[2020-12-24] MEDS: predniSONE 20 MG TAB PO SCH (08:31)
[2020-12-24] MEDS: ALPRAZolam 0.25 MG TAB PO SCH (08:32)
[2020-12-24 08:47] LABS: Band 1 % (5-11); Eosinophils 4 % (0-10); Lymphocytes 48 % (21-51); MDiff Complete? YES; Monocytes 5 % (0-10); Neutrophil 42 % (42-75); Platelet Morphology Comment Appears Adequate; RBC Morphology Normal
[2020-12-24 16:08] VITALS: BP 119/84; TEMP 98.2
== END 2020-12-24 18:07 | disposition home or self-care (01) | DRG 870 ==
LOC: ERS 09:13 → ERHOLD 10:31 → CCU 11-30 17:13 → 2SW 12-17 12:04 → T4-B 12-20 20:10
PROVIDERS: ADMIT Family Medicine; ATTEND Internal Medicine
PROC: 5A1955Z Respiratory Ventilation, Greater than 96 Consecutive Hours (ICD-10-PCS; principal; 2020-11-29)
PROC: 8E0ZXY6 Isolation (ICD-10-PCS; 2020-11-29)
PROC: XW033H5 Introduction of Tocilizumab into Peripheral Vein, Percutaneous Approach, New Technology Group 5 (ICD-10-PCS; 2020-11-29)
PROC: 3E0333Z Introduction of Anti-inflammatory into Peripheral Vein, Percutaneous Approach (ICD-10-PCS; 2020-11-29)
PROC: 0BH18EZ Insertion of Endotracheal Airway into Trachea, Via Natural or Artificial Opening Endoscopic (ICD-10-PCS; 2020-11-29)
PROC: 0D9670Z Drainage of Stomach with Drainage Device, Via Natural or Artificial Opening (ICD-10-PCS; 2020-11-29)
PROC: 5A09357 Assistance with Respiratory Ventilation, Less than 24 Consecutive Hours, Continuous Positive Airway Pressure (ICD-10-PCS; 2020-12-13)
PROC: 3E0G76Z Introduction of Nutritional Substance into Upper GI, Via Natural or Artificial Opening (ICD-10-PCS; 2020-12-13)
DX: A41.89 Other specified sepsis (principal); U07.1 COVID-19; J12.82 Pneumonia due to coronavirus disease 2019; J80 Acute respiratory distress syndrome; G93.41 Metabolic encephalopathy; E87.1 Hypo-osmolality and hyponatremia; G72.81 Critical illness myopathy; F05 Delirium due to known physiological condition; E87.3 Alkalosis; R65.20 Severe sepsis without septic shock; E87.6 Hypokalemia; R74.01 Elevation of levels of liver transaminase levels; R73.9 Hyperglycemia, unspecified; E66.9 Obesity, unspecified; R10.9 Unspecified abdominal pain; Z78.1 Physical restraint status; Z68.28 Body mass index [BMI] 28.0-28.9, adult
CPT/HCPCS: 0240U; 31500; 36415; 36416; 36600; 71045; 71275; 74230; 80048; 80053; 80202; 81001; 82550; 82728; 82805; 83735; 83880; 84100; 84484; 85007; 85025; 85027; 85379; 86140; 87040; 87070; 87086; 87205; 87324; 87449; 93005; 93010; 94002; 94003; 94660; 96365; 96366; 96368; 96372; 96375; C9113; J0456; J0692; J0696; J1100; J1120; J1630; J1650; J1815; J2060; J2250; J2270; J2704; J2920; J2930; J3010; J3360; J3370; J3480; J3490; J7050; J7512; M0249; Q0162; Q0249; Q9967